=== PATIENT | female | born 1960 | race Caucasian/White ===

== ENCOUNTER 2016-10-23 19:16 | Emergency (ER) | payer SELFPAY ==
[~2016-10-23] VITALS: Ht 165.1 cm; Wt 77.1 kg
[2016-10-23 19:41] VITALS: BP 149/79
--- NOTE | 2016-10-23 20:00 | NUR ---
PT TAKEN TO BED 5
--- NOTE | 2016-10-23 20:04 | NUR ---
P55/F BIB FAMILY C/O UPPER BACK PAIN x 5 DAYS. PT STATES SHE HAS PREVIOUS BACK SURGERY.DENIES N/V/D; SKIN IS PINK/WARM/DRY; AAOX4 WITH EVEN AND STEADY GAIT; LUNGS CLEAR BL; HR EVEN AND REGULAR; PT DENIES ANY FEVER, CP, SOB, OR COUGH AT THIS TIME; PATIENT STATES PAIN OF 10/10 AT THIS TIME; VSS; PATIENT POSITIONED FOR COMFORT; HOB ELEVATED; BEDRAILS UP X2; BED DOWN. ER MD MADE AWARE OF PT STATUS.
--- NOTE | 2016-10-23 20:30 | NUR ---
Patient being evaluated by physician at bedside.
--- NOTE | 2016-10-23 22:06 | NUR ---
Patient discharged with v/s stable. Written and verbal after care instructions given and explained by DR. VELASQUEZ. Patient alert, oriented and verbalized understanding of instructions. Ambulatory with steady gait. All questions addressed prior to discharge. ID band removed. Patient advised to follow up with PMD. Rx of SOMA 350MG given. Patient educated on indication of medication including possible reaction and side effects. Opportunity to ask questions provided and answered.
[2016-10-23 22:08] VITALS: BP 132/72
== END 2016-10-23 22:06 | disposition home or self-care (01) ==
LOC: MED 19:16
DX: M62.830 Muscle spasm of back (principal); R03.0 Elevated blood-pressure reading, without diagnosis of hypertension; Z98.890 Other specified postprocedural states

== ENCOUNTER 2020-01-06 06:54 | Day surgery (SDC) | payer OTHER ==
[~2020-01-06] VITALS: Ht 160 cm; Wt 81.6 kg
[2020-01-06] MEDS ORDERED: MIDAZOLAM 2 MG/2 ML VIAL ONE (08:54)
[2020-01-06] MEDS ORDERED: fentaNYL 0.05 MG/ML VIAL ONE (08:54)
[2020-01-06] MEDS ORDERED: LIDOCAINE 2% 100 MG/5 ML UJET TP ONE (08:55)
[2020-01-06] MEDS ORDERED: fentaNYL 0.05 MG/ML VIAL IVP ONE (09:40)
[2020-01-06] MEDS ORDERED: fentaNYL 0.05 MG/ML VIAL IVP SCH (09:43)
== END 2020-01-06 10:00 | disposition home or self-care (01) ==
LOC: MDS 06:54 → MMU 06:57 → MDS 10:00
PROVIDERS: ATTEND Internal Medicine Gastroenterology
DX: Z12.11 Encounter for screening for malignant neoplasm of colon (principal); D12.4 Benign neoplasm of descending colon; E78.00 Pure hypercholesterolemia, unspecified; I10 Essential (primary) hypertension; E11.9 Type 2 diabetes mellitus without complications; Z98.890 Other specified postprocedural states; Z79.84 Long term (current) use of oral hypoglycemic drugs; Z79.899 Other long term (current) drug therapy
CPT/HCPCS: 36415; 45385; J3010; J2250

== ENCOUNTER 2020-03-19 02:24 | Emergency (ER) | payer OTHER ==
[~2020-03-19] VITALS: Ht 162.6 cm; Wt 81.6 kg
[2020-03-19 02:43] VITALS: BP 197/102
[2020-03-19 03:11] LABS: BASOPHILS % (AUTO) 0.5 % (0.0-2.0); EOSINOPHILS # (AUTO) 0.2 K/uL (0-0.4); EOSINOPHILS % (AUTO) 2.9 % (0.0-4.0); HEMATOCRIT 38.6 % (36-48); LYMPHOCYTES # (AUTO) 1.7 K/uL (2.5-16.5); LYMPHOCYTES % (AUTO) 29.8 % (20.5-51.1); MEAN CORPUSCULAR HEMOGLOBIN 31 pg (27-31); MEAN CORPUSCULAR HGB CONC 34 g/dL (33-37); MEAN CORPUSCULAR VOLUME 90.8 fL (80-94); MONOCYTES # (AUTO) 0.5 K/uL (0.8-1.0); MONOCYTES % (AUTO) 8.2 % (1.7-9.3); NEUTROPHILS # (AUTO) 3.4 K/uL (1.8-7.7); NEUTROPHILS % (AUTO) 58.6 % (42.2-75.2); PLATELET COUNT (AUTO) 268 K/uL (140-450); RED BLOOD CELL COUNT(AUTO) 4.25 MIL/uL (4.20-5.40); RED CELL DISTRIBUTION WIDTH 12.3 % (11.6-13.7); WHITE BLOOD COUNT (AUTO) 5.8 K/uL (4.8-10.8)
[2020-03-19] MEDS ORDERED: LIDOCAINE VISCOUS 2% 20 ML UDC ONE (03:28)
[2020-03-19] MEDS ORDERED: DICYCLOMINE HCL LIQUID 10 MG/5 ML UDC ONE (03:28)
[2020-03-19] MEDS ORDERED: ALUMINUM HYD/MAG/SIMETHICONE 30 ML UDC ONE (03:28)
[2020-03-19] MEDS: DICYCLOMINE HCL LIQUID 20 MG, ALUMINUM HYD/MAG/SIMETHICONE 30 ML, LIDOCAINE VISCOUS 2% ... PO ONE ×3 (03:30)
--- NOTE | 2020-03-19 03:38 | NUR ---
59 Y/O F PRESENTS TO ED C/O CHRONIC ACID REFLUX AND CHEST PAIN THAT JUST STARTED TODAY. PT STATES THAT SHE'S ALWAYS HAS ACID REFLUX BUT IS NOW EXPERIENCING CHEST PAIN OF 10/10. PT DENIES N/V/D, COUGH. AIRWAY INTACT. PT IS HYPERTENSIVE AT 189/95. PT O2 SAT AT 92-93% AT RA. PT PLACED ON 2L OF O2, O2 SAT AT 99%. BED LOCKED AND IN LOWEST POSITION, SIDE RAIL UP X1. WILL CONTINUE TO MONITOR. MHX: HTN, ACID REFLUX NKA
[2020-03-19 03:52] LABS: ALBUMIN 4.1 g/dL (3.4-5.0); ANION GAP 15.2 (8-16); CARBON DIOXIDE 24.6 mmol/L (21-32); CREATININE 0.7 mg/dL (0.6-1.3); POTASSIUM 3.8 mmol/L (3.5-5.1); TOTAL BILIRUBIN 0.8 mg/dL (0.0-1.0)
[2020-03-19 04:08] LABS: CREATINE KINASE MB 0.7 ng/mL (0-3.6)
--- NOTE | 2020-03-19 04:41 | NUR ---
Patient discharged with v/s stable. Written and verbal after care instructions given and explained. Patient alert, oriented and verbalized understanding of instructions. Ambulatory with steady gait. All questions addressed prior to discharge. ID band removed. Patient advised to follow up with PMD. Rx of MYLANTA given. Patient educated on indication of medication including possible reaction and side effects. Opportunity to ask questions provided and answered.
[2020-03-19 04:44] VITALS: BP 189/95
== END 2020-03-19 04:41 | disposition home or self-care (01) ==
LOC: MED 02:24
DX: R07.9 Chest pain, unspecified (principal); K21.9 Gastro-esophageal reflux disease without esophagitis; Z98.890 Other specified postprocedural states
CPT/HCPCS: 36415; 71045; 80053; 82550; 82553; 83690; 84484; 85025; 99284; Q0092

== ENCOUNTER 2020-07-18 03:05 | Emergency (ER) | payer OTHER ==
[~2020-07-18] VITALS: Ht 160 cm; Wt 85.7 kg
[2020-07-18 03:10] VITALS: BP 189/90
--- NOTE | 2020-07-18 03:13 | NUR ---
TO LOBBY A/W BED AMBULATORY
--- NOTE | 2020-07-18 03:55 | NUR ---
SEEN AND EXAMINED BY LUIS ENRIQUE WITH ORDERS AND CARRIED OUT
[2020-07-18] MEDS ORDERED: NITROGLYCERIN 0.4 MG TAB SL ONE (04:00)
--- NOTE | 2020-07-18 04:10 | NUR ---
MEDICATED PER ERMD ORDER, PATIENT TOLERATED WELL.
[2020-07-18] MEDS ORDERED: CLONIDINE HYDROCHLORIDE 0.1 MG TAB PO ONE (04:30)
[2020-07-18] MEDS ORDERED: PANTOPRAZOLE 40 MG TABEC PO ONE (05:05)
[2020-07-18] MEDS ORDERED: ONDANSETRON 4 MG ODT PO ONE (05:05)
[2020-07-18] MEDS ORDERED: ALUMINUM HYD/MAG/SIMETHICONE 30 ML, DICYCLOMINE HCL LIQUID 20 MG, LIDOCAINE VISCOUS 2% ... PO ONE ×3 (05:05)
[2020-07-18] MEDS ORDERED: DICYCLOMINE HCL LIQUID 10 MG/5 ML UDC ONE (05:12)
[2020-07-18] MEDS ORDERED: ALUMINUM HYD/MAG/SIMETHICONE 30 ML UDC ONE (05:12)
[2020-07-18] MEDS ORDERED: LIDOCAINE VISCOUS 2% 20 ML UDC ONE (05:12)
[2020-07-18 05:31] LABS: BASOPHILS % (AUTO) 0.8 % (0.0-2.0); EOSINOPHILS # (AUTO) 0.2 K/uL (0-0.4); HEMATOCRIT 37.7 % (36-48); HEMOGLOBIN 12.8 g/dL (12.0-16.0); LYMPHOCYTES # (AUTO) 1.8 K/uL (2.5-16.5); LYMPHOCYTES % (AUTO) 31.5 % (20.5-51.1); MEAN CORPUSCULAR HEMOGLOBIN 30 pg (27-31); MEAN CORPUSCULAR HGB CONC 34 g/dL (33-37); MEAN CORPUSCULAR VOLUME 88.8 fL (80-94); MONOCYTES # (AUTO) 0.5 K/uL (0.8-1.0); MONOCYTES % (AUTO) 8.4 % (1.7-9.3); NEUTROPHILS # (AUTO) 3.3 K/uL (1.8-7.7); NEUTROPHILS % (AUTO) 56.3 % (42.2-75.2); PLATELET COUNT (AUTO) 322 K/uL (140-450); RED BLOOD CELL COUNT(AUTO) 4.24 MIL/uL (4.20-5.40); RED CELL DISTRIBUTION WIDTH 12.5 % (11.6-13.7); WHITE BLOOD COUNT (AUTO) 5.8 K/uL (4.8-10.8)
[2020-07-18 05:45] LABS: ANION GAP 17.3 (8-16); CARBON DIOXIDE 26.6 mmol/L (21-32); CREATININE 0.7 mg/dL (0.6-1.3); POTASSIUM 3.9 mmol/L (3.5-5.1); TOTAL BILIRUBIN 0.6 mg/dL (0.0-1.0)
[2020-07-18 06:40] VITALS: BP 150/87
--- NOTE | 2020-07-18 06:40 | NUR ---
Patient discharged with v/s stable. Written and verbal after care instructions given and explained. Patient alert, oriented and verbalized understanding of instructions. Ambulatory with steady gait. All questions addressed prior to discharge. ID band removed. Patient advised to follow up with PMD. Rx of PROTONIX given. Patient educated on indication of medication including possible reaction and side effects. Opportunity to ask questions provided and answered.
[2020-07-18] MEDS ORDERED: ASPIRIN 325 MG TABEC PO SCH (09:00)
== END 2020-07-18 06:40 | disposition home or self-care (01) ==
LOC: MED 03:05
DX: R07.9 Chest pain, unspecified (principal); I10 Essential (primary) hypertension
CPT/HCPCS: 36415; 71045; 80053; 84484; 85025; 93005; 99285; Q0162

== ENCOUNTER 2020-12-23 23:28 | Emergency (ER) | payer OTHER ==
[~2020-12-23] VITALS: Ht 160 cm; Wt 83.0 kg
[2020-12-23 23:34] VITALS: BP 199/117
[2020-12-23] MEDS ORDERED: PHENAZOPYRIDINE 100 MG TAB PO ONE ×2 (23:40→23:45)
[2020-12-23] MEDS ORDERED: cefTRIAXone 1,000 MG in LIDOCAINE MPF 1% 2.1 ML IM ONE ×2 (23:40→23:45)
[2020-12-23] MEDS ORDERED: CLONIDINE HYDROCHLORIDE 0.1 MG TAB PO ONE ×2 (23:40→23:45)
[2020-12-23 23:50] LABS: APPEARANCE,URINE SL CLOUDY (CLEAR); BILIRUBIN,URINE NEGATIVE (NEGATIVE); BLOOD, URINE 1+ (NEGATIVE); COLOR,URINE YELLOW (YELLOW); LEUKOCYTE ESTERASE ,URINE 2+ (NEGATIVE); NITRITE, URINE NEGATIVE (NEGATIVE); PH,URINE 6.5 (5.0-9.0); UGLUCOSE 1+ (NEGATIVE)
[2020-12-23] MEDS ORDERED: cefTRIAXone 1,000 MG VIAL ONE (23:50)
[2020-12-23] MEDS ORDERED: LIDOCAINE MPF 1% 5 ML ONE (23:50)
[2020-12-24] MEDS ORDERED: CEPH500C16 PO (00:05)
[2020-12-24] MEDS ORDERED: CLON0.1T15 PO (00:05)
[2020-12-24] MEDS ORDERED: PHEN-1877 PO (00:07)
[2020-12-24 00:50] VITALS: BP 158/93
== END 2020-12-24 00:50 | disposition home or self-care (01) ==
LOC: MED 23:28
DX: N39.0 Urinary tract infection, site not specified (principal); E11.65 Type 2 diabetes mellitus with hyperglycemia; K21.9 Gastro-esophageal reflux disease without esophagitis; I10 Essential (primary) hypertension
CPT/HCPCS: 81001; 81025; 87086; 96372; 99283; J0696; J2001

== ENCOUNTER 2022-09-05 00:37 | Inpatient (IN) | payer MEDICAID, OTHER ==
[~2022-09-05] VITALS: Ht 160 cm; Wt 80.3 kg
[~2022-09-05 00:37] MED LIST: CEPH500C16 PO; CLON0.1T15 PO; PHEN-1877 PO
[2022-09-05 00:43] VITALS: BP 180/89
--- NOTE | 2022-09-05 03:11 | NUR ---
PT AMB TO ER BED 08
--- NOTE | 2022-09-05 03:11 | NUR ---
Received patient to ER w/ c/o cp ongoing since yesterday but w/ pain progressively worse today. Described as "As if someone was stepping onto my chest". Patient also states that pain radiates to bilateral arms but pain worse on right side compared to left. Introduced self to patient, positioned for comfort and safety w/ bed to low position sr up. Patient is nsr on material requirements planning manager. Continue to monitor.
--- NOTE | 2022-09-05 04:47 | NUR ---
Connor palacios in ED - 09/05/22 at 0454 by [email or web address] X-Ray at bedside.
[2022-09-05] MEDS ORDERED: ASPIRIN 325 MG TAB PO ONE (04:50)
--- NOTE | 2022-09-05 05:06 | NUR ---
patient medicated as ordered w/ 325mg of ASA. will observe for any adverse reaction. bed to low position sr up, continue to monitor.
--- NOTE | 2022-09-05 05:07 | NUR ---
X-Ray at bedside.
--- NOTE | 2022-09-05 05:11 | NUR ---
No change from previous assessment. patient resting comfortably at this time. in no acute distress. nsr on panel monitor. Continue to monitor.
--- NOTE | 2022-09-05 05:20 | NUR ---
carmelita suazo started on right hand, lab work obtained and specimens sent to lab.
[2022-09-05 05:35] LABS: BASOPHILS % (AUTO) 0.8 % (0.0-2.0); EOSINOPHILS # (AUTO) 0.1 K/uL (0-0.4); EOSINOPHILS % (AUTO) 2.1 % (0.0-4.0); HEMOGLOBIN 13.2 g/dL (12.0-16.0); LYMPHOCYTES # (AUTO) 2.6 K/uL (2.5-16.5); LYMPHOCYTES % (AUTO) 46.7 % (20.5-51.1); MEAN CORPUSCULAR HEMOGLOBIN 31 pg (27-31); MEAN CORPUSCULAR HGB CONC 35 g/dL (33-37); MEAN CORPUSCULAR VOLUME 88.2 fL (80-94); MONOCYTES # (AUTO) 0.4 K/uL (0.8-1.0); MONOCYTES % (AUTO) 7.7 % (1.7-9.3); NEUTROPHILS # (AUTO) 2.4 K/uL (1.8-7.7); NEUTROPHILS % (AUTO) 42.7 % (42.2-75.2); PLATELET COUNT (AUTO) 263 K/uL (140-450); RED BLOOD CELL COUNT(AUTO) 4.31 MIL/uL (4.20-5.40); WHITE BLOOD COUNT (AUTO) 5.6 K/uL (4.8-10.8)
[2022-09-05 06:01] LABS: ASPARTATE AMINOTRANSFERASE 21 U/L (15-37); TOTAL BILIRUBIN 0.8 mg/dL (0.0-1.0)
[2022-09-05 06:13] LABS: ANION GAP 15.1 (8-16); CARBON DIOXIDE 26.7 mmol/L (21-32); CHLORIDE 100 mmol/L (98-107); CREATININE 0.5 mg/dL (0.6-1.3); GFR ARICAN-AMERICAN 160 mL/min (>90); GLUCOSE 226 mg/dL (74-106); LIPASE 86 U/L (73-393); POTASSIUM 3.8 mmol/L (3.5-5.1); SODIUM SERUM 138 mmol/L (136-145); UREA NITROGEN, BLOOD 9 mg/dL (7-18)
--- NOTE | 2022-09-05 06:18 | NUR ---
BELONGINGS LIST DONE.
--- NOTE | 2022-09-05 07:17 | NUR ---
PT RECEIVED, CARE ASSUMED. PT A/OX4. PT DENIES ANY PAIN OR DISTRESS. WILL CONTINUE TO MONITOR
[2022-09-05] MEDS ORDERED: DOCUSATE SODIUM 100 MG GELCAP PO PRN (08:20)
[2022-09-05] MEDS ORDERED: guaiFENesin DM 200/20 MG-10 ML 10 ML UDC PO PRN (08:20)
[2022-09-05] MEDS ORDERED: HYDROcodone/APAP 7.5/325 MG 1 TAB PO PRN (08:20)
[2022-09-05] MEDS ORDERED: POTASSIUM CHLORIDE 10 MEQ TABER PO PRN (08:20)
[2022-09-05] MEDS ORDERED: ACETAMINOPHEN 325 MG TAB PO PRN (08:20)
[2022-09-05] MEDS ORDERED: ZOLPIDEM 5 MG TAB PO PRN (08:20)
[2022-09-05] MEDS ORDERED: ONDANSETRON 4 MG/2 ML VIAL IM/IVP PRN (08:20)
[2022-09-05] MEDS ORDERED: hydrALAZINE 20 MG/ML VIAL IVP PRN (08:25)
--- NOTE | 2022-09-05 08:57 | NUR ---
PATIENT HAS BEEN SCREENED AND CATEGORIZED MODERATE NUTRITION RISK. PATIENT WILL BE SEEN WITHIN 3-5 DAYS OF ADMISSION. REVIEWED BY MODESTA STORM RD
[2022-09-05] MEDS ORDERED: PANTOPRAZOLE 40 MG TABEC PO SCH (09:00)
[2022-09-05 10:25] LABS: CHOL/HDL RATIO 5.4 (1-4.5); FREE T4 (FREE THYROXINE) 0.91 ng/dL (0.76-1.46); PHOSPHORUS 4.6 mg/dL (2.5-4.9); THYROID STIMULATING HORMONE 3.17 uIU/mL (0.34-3.74)
[2022-09-05 10:39] LABS: PROTHROMBIN TIME 9.8 secs (10.8-13.4)
[2022-09-05] MEDS ORDERED: NITROGLYCERIN 0.4 MG TAB SL PRN (11:05)
[2022-09-05] MEDS: LOSARTAN 50 MG TAB PO SCH (11:40)
[2022-09-05] MEDS ORDERED: PANTOPRAZOLE 40 MG INJ VIAL IVP SCH (12:00)
--- NOTE | 2022-09-05 12:08 | NUR ---
Patient will be admitted to care of JOSÉ ANTONIO RN. Admited to 104B. Will go to room. Belongings list completed. Report to .
[2022-09-05 16:00] VITALS: BP 154/74
[2022-09-05 18:13] LABS: APPEARANCE,URINE CLEAR (CLEAR); BILIRUBIN,URINE NEGATIVE (NEGATIVE); BLOOD, URINE NEGATIVE (NEGATIVE); COLOR,URINE YELLOW (YELLOW); LEUKOCYTE ESTERASE ,URINE NEGATIVE (NEGATIVE); NITRITE, URINE NEGATIVE (NEGATIVE); UGLUCOSE TRACE (NEGATIVE)
[2022-09-05 18:22] LABS: BARBITURATE, URINE NEGATIVE ng/ml (NEG <=200); BENZODIAZEPINE, URINE NEGATIVE ng/mL (NEG <=200); CANNABINOID, URINE NEGATIVE ng/mL (NEG <=50); COCAINE, URINE NEGATIVE ng/mL (NEG <=300); OPIATE, URINE NEGATIVE ng/mL (NEG <=2000); PHENCYCLIDINE SCREEN,URINE NEGATIVE ng/mL (NEG <=25)
--- NOTE | 2022-09-05 19:30 | NUR ---
RECEIVED REPORT FROM DAY SHIFT RN WILLIAM FOR CONTINUITY OF CARE. PT IS AWAKE. PT IS AAOX4 ON RA. PT NOT IN ANY DISTRESS. PT IS FEELING OKAY. PT HAS RIGHT HAND 20 GAUGE SALINE LOCK. POC DISCUSSED. WILL CONTINUE TO MONITOR THE PT.
[2022-09-05 20:00] VITALS: BP 128/73
[2022-09-05] MEDS: METOPROLOL 25 MG TAB PO SCH (20:36)
--- NOTE | 2022-09-05 20:36 | NUR ---
SCHEDULE MEDICATIONS GIVEN. NO ADVERSE REACTION NOTED. WILL CONTINUE TO MONITOR THE PT.
[2022-09-05] MEDS ORDERED: ATORVASTATIN 20 MG TAB PO SCH (21:00)
[2022-09-06] VITALS (7 sets, daily range): BP systolic 141–191; BP diastolic 75–94
--- NOTE | 2022-09-06 00:20 | NUR ---
PT OBSERVED. PT IS SLEEPING COMFORTABLY IN BED. PT NOT IN ANY ACUTE DISTRESS. MIDNIGHT VITAL STABLE. CALL LIGHT WITHIN REACH. WILL CONTINUE TO MONITOR THE PT.
--- NOTE | 2022-09-06 04:18 | NUR ---
PT OBSERVED. PT IS SLEEPING COMFORTABLY IN BED. PT NOT IN ANY ACUTE DISTRESS. MORNING VITAL STABLE. CALL LIGHT WITHIN REACH. WILL CONTINUE TO MONITOR THE PT.
[2022-09-06 06:30] LABS: BASOPHILS % (AUTO) 0.7 % (0.0-2.0); EOSINOPHILS # (AUTO) 0.1 K/uL (0-0.4); EOSINOPHILS % (AUTO) 2.2 % (0.0-4.0); HEMATOCRIT 37.5 % (36-48); HEMOGLOBIN 13.1 g/dL (12.0-16.0); LYMPHOCYTES # (AUTO) 2.1 K/uL (2.5-16.5); LYMPHOCYTES % (AUTO) 36.1 % (20.5-51.1); MEAN CORPUSCULAR HEMOGLOBIN 31 pg (27-31); MEAN CORPUSCULAR HGB CONC 35 g/dL (33-37); MEAN CORPUSCULAR VOLUME 88.4 fL (80-94); MONOCYTES # (AUTO) 0.4 K/uL (0.8-1.0); MONOCYTES % (AUTO) 6.4 % (1.7-9.3); NEUTROPHILS # (AUTO) 3.1 K/uL (1.8-7.7); NEUTROPHILS % (AUTO) 54.6 % (42.2-75.2); PLATELET COUNT (AUTO) 270 K/uL (140-450); RED BLOOD CELL COUNT(AUTO) 4.25 MIL/uL (4.20-5.40); RED CELL DISTRIBUTION WIDTH 12.1 % (11.6-13.7); WHITE BLOOD COUNT (AUTO) 5.7 K/uL (4.8-10.8)
[2022-09-06 06:37] LABS: ANION GAP 11.6 (8-16); CARBON DIOXIDE 27.3 mmol/L (21-32); CREATININE 0.6 mg/dL (0.6-1.3); POTASSIUM 3.9 mmol/L (3.5-5.1)
--- NOTE | 2022-09-06 07:20 | NUR ---
SCHEDULE MEDICATIONS GIVEN. NO ADVERSE REACTION NOTED. WILL CONTINUE TO MONITOR THE PT.
--- NOTE | 2022-09-06 07:25 | NUR ---
RECEIVED PT FROM NIGHT RN, PT IS ASLEEP AND LYING ON TH EBED WITH SIDE RAILS UP AND CALL LIGHT WITHIN REACH, IV LINE NOTED ON THE RIGHT HAND G. 20 ON SALINE LOCK, PT IS ON ROOM AIR, RESPIRATION IS EVEN AND VISIBLE CHEST RISE AND FALL, NO SIGN OF DISTRESS NOTED AND WILL CONTINUE TO MONITOR PT.
[2022-09-06 08:07] LABS: T4 (THYROXINE) 7.6 ug/dL (4.5-12.0)
[2022-09-06] MEDS: METOPROLOL 25 MG TAB PO SCH (08:13)
--- NOTE | 2022-09-06 08:13 | NUR ---
PT WAS GIVEN THE SCHEDULED AM MEDICATIONS, PARAMETERS CHECKED.
[2022-09-06] MEDS: LOSARTAN 50 MG TAB PO SCH (08:14)
[2022-09-06] MEDS ORDERED: ECOTRIN 81 MG TABEC PO SCH (09:00)
[2022-09-06] MEDS ORDERED: PANTOPRAZOLE 40 MG TABEC PO SCH (09:00)
--- NOTE | 2022-09-06 11:47 | NUR ---
PT'S BP IS HIGH 191/92, PULSE IS 60, WAS MEDICATED, WILL RE-ASSESS.
[2022-09-06] MEDS ORDERED: amLODIPine 5 MG TAB PO SCH (13:45)
[2022-09-06] MEDS ORDERED: METF-350 PO (18:13)
[2022-09-06] MEDS ORDERED: ATOR40TA PO (18:13)
[2022-09-06] MEDS ORDERED: LOSA100T1 PO (18:13)
[2022-09-06] MEDS ORDERED: AMLO5TAB PO (18:13)
--- NOTE | 2022-09-06 19:04 | NUR ---
DISCHARGED PT TO HOME ACCOMPANIED BY , DISCHARGED TEACHINGS AND INSTRUCTIONS GIVEN TO PT AND VERBALIZED UNDERSTANDING, IV LINE REMOVED AND PT IS STABLE AT THIS TIME.
[2022-09-07] MEDS ORDERED: ATORVASTATIN 20 MG TAB PO SCH (09:00)
== END 2022-09-06 19:11 | disposition home or self-care (01) | DRG 243 ==
LOC: MED 00:37 → MTU 06:23
PROVIDERS: ADMIT Family Medicine; ATTEND Family Medicine
DX: K21.9 Gastro-esophageal reflux disease without esophagitis (principal); E11.9 Type 2 diabetes mellitus without complications; R07.89 Other chest pain; E78.2 Mixed hyperlipidemia; M25.511 Pain in right shoulder; E78.5 Hyperlipidemia, unspecified; I10 Essential (primary) hypertension; Z20.822 Contact with and (suspected) exposure to COVID-19; Z91.199 Patient's noncompliance with other medical treatment and regimen due to unspecified reason
CPT/HCPCS: 36415; 71045; 72050; 73030; 80048; 80053; 80305; 81003; 82150; 83036; 83690; 83735; 83880; 84100; 84436; 84439; 84443; 84479; 84484; 85025; 85610; 85730; 87081; 99285; C9113; J0360; Q0092

== ENCOUNTER 2023-11-24 18:08 | Emergency (ER) | payer MEDICAID, OTHER ==
[~2023-11-24] VITALS: Ht 160 cm; Wt 77.1 kg
[~2023-11-24 18:08] MED LIST changes: +AMLO5TAB PO; +ATOR40TA PO; -CEPH500C16 PO; -CLON0.1T15 PO; +LOSA-272 PO; +METF-350 PO; -PHEN-1877 PO
[2023-11-24 19:03] VITALS: BP 164/93; PULSE 74; RESP 18; TEMP 98.6; O2SAT 95
[2023-11-24] MEDS: KETOROLAC 30 MG/ML VIAL IM ONE (20:37)
[2023-11-24] MEDS ORDERED: NAPR-1704 PO (21:47)
[2023-11-24] MEDS ORDERED: CAPS1ADH5 TP (21:47)
== END 2023-11-24 22:29 | disposition home or self-care (01) ==
LOC: MED 18:08
DX: S46.811A Strain of other muscles, fascia and tendons at shoulder and upper arm level, right arm, initial encounter (principal); S39.012A Strain of muscle, fascia and tendon of lower back, initial encounter; I10 Essential (primary) hypertension; K21.9 Gastro-esophageal reflux disease without esophagitis; E11.9 Type 2 diabetes mellitus without complications; Z79.4 Long term (current) use of insulin; Z79.899 Other long term (current) drug therapy; V49.88XA Car occupant (driver) (passenger) injured in other specified transport accidents, initial encounter; Y93.89 Activity, other specified; Y92.89 Other specified places as the place of occurrence of the external cause; Y99.8 Other external cause status
CPT/HCPCS: 72050; 72100; 96372; 99284; J1885